=== PATIENT | female | born 1975 | race Caucasian/White ===

== ENCOUNTER 2019-10-01 17:40 | Emergency (ER) | payer SELFPAY ==
[~2019-10-01] VITALS: Ht 170 cm; Wt 61.2 kg
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
[2019-10-01 18:16] VITALS: BP 120/73
== END 2019-10-01 18:17 | disposition home or self-care (01) ==
LOC: EDUNIT# 17:40 → ER FS 17:43
DX: S69.91XA Unspecified injury of right wrist, hand and finger(s), initial encounter (principal); V48.5XXA Car driver injured in noncollision transport accident in traffic accident, initial encounter
CPT/HCPCS: 99282